=== PATIENT | male | born 1950 | race Caucasian/White ===

== ENCOUNTER 2017-09-01 11:39 | Emergency (ER) | payer OTHER ==
[2017-09-01 11:40] VITALS: BP 192/94; PULSE 78; RESP 16; TEMP 98.6; O2SAT 97
[2017-09-01] MEDS ORDERED: SIMV40TA PO (12:02)
[2017-09-01] MEDS ORDERED: LIDOCAINE HCL 1% 50 ML VIAL INFIL ONE (12:15)
[2017-09-01] MEDS ORDERED: ACETAMINOPHEN/HYDROcodone 325 MG/5 MG TAB PO ONE (12:15)
[2017-09-01] MEDS ORDERED: TETANUS/DIPHTHERIA TOXOID ADULT 0.5 ML VIAL IM ONE (12:15)
[2017-09-01] MEDS ORDERED: BUPIVACAINE HCL PF 0.5% 10 ML VIAL INFIL ONE (12:15)
--- NOTE | 2017-09-01 12:17 | PD ---
HPI Chief Complaint: Laceration/Skin Injury Time Seen by Provider: 12:13 Travel History International Travel<30 days: No Contact w/Intl Traveler<30days: No Traveled to known affect area: No History of Present Illness HPI 66-year-old male presents to emergency department complaining of right index finger pain and laceration after he got crushed under a [employer]ke machine. He is an employee with [employer] and this is a work-related injury. Denies paresthesias , loss of sensation, decreased range of motion, decreased strength to the affected finger. Bleeding controlled. Denies anticoagulant therapy. Applied pressure and bandage to control bleeding. Has not taken any medication to alleviate his symptoms. Pain is constant. Throbbing in sensation. 8/10 pain rating. No relieving factors. No known allergies. Has no medical complaints. No other modifying factors or associated signs and symptoms. PFSH Past Medical History High Cholesterol: Yes Diabetes: Yes Patient Takes Glucophage: No Tetanus Vaccination: < 5 Years Past Surgical History Surgical History: No Previous Surgery Social History Alcohol Use: No Tobacco Use: No Substance Use: No Allergies-Medications (Allergen,Severity, Reaction): Coded Allergies: No Known Allergies (Unverified , 09/01/17) Reported Meds & Prescriptions Reported Meds & Active Scripts Active Bactrim DS (Sulfamethoxazole-Trimethoprim) 800-160 Mg Tab 1 Tab PO BID 7 Days Ibuprofen 800 Mg Tab 800 Mg PO Q6HR PRN Marion (Hydrocodone-Acetaminophen) 5 Mg-325 Mg Tab 1 Tab PO Q4H PRN Reported Simvastatin 40 Mg Tab 40 Mg PO HS Review of Systems Except as stated in HPI: all other systems reviewed are Neg Physical Exam Narrative GENERAL: Well-nourished, well-developed black male patient, in no acute distress SKIN: Warm and dry. Left hand second index finger with approximately 2.5 cm laceration to the medial aspect of the base of the finger in between the MCP and PIP joint; finger with full range of motion at all joints and with minimal edema; bleeding controlled; with good opposition and sensory intact. HEAD: Atraumatic. Normocephalic. EYES: Pupils equal and round. No scleral icterus. No injection or drainage. ENT: Mucosa pink and moist. Airway patent. NECK: Trachea midline. CARDIOVASCULAR: Regular rate. RESPIRATORY: No accessory muscle use. GASTROINTESTINAL: Rounded. MUSCULOSKELETAL: No obvious deformities. No clubbing. No cyanosis. No edema. NEUROLOGICAL: Awake and alert. Oriented 3. No obvious cranial nerve deficits. Motor grossly within normal limits. Normal speech. PSYCHIATRIC: Appropriate mood and affect; insight and judgment normal. Data Data Last Documented VS Vital Signs Date Time Temp Pulse Resp B/P (MAP) Pulse Ox O2 Delivery O2 Flow Rate FiO2 09/01/17 11:40 98.6 78 16 192/94 (126) 97 Room Air Orders Orders Finger ([id number]) (09/01/17 ) Acetamin-Hydrocod 325-5 Mg (Marion 5-325 (09/01/17 12:15) Tetanus/Diphtheria Tox Adult (Tetanus/Di (09/01/17 12:15) Bupivacaine Pf 0.5% Inj (Marcaine Pf 0.5 (09/01/17 12:15) Lidocaine 1% Inj (50 Ml) (Xylocaine 1% I (09/01/17 12:15) Ed Discharge Order (09/01/17 13:55) MDM Medical Decision Making Medical Screen Exam Complete: Yes Emergency Medical Condition: Yes Medical Record Reviewed: Yes Differential Diagnosis Finger fracture, contusion, abrasion, laceration Narrative Course 56-year-old male with right index finger laceration and crush injury. Tetanus is up-to-date. Marion and Right index finger x-ray ordered. Right finger x-ray concludes Finger X-Ray 09/01/17 0000 Signed Impressions: Service Date/Time: Friday, September 01, 2017 12:35 - CONCLUSION: Unremarkable examination of the right second finger except for soft tissue swelling anteriorly. Augustus Metcalf MD See my procedure note laceration repair. Bactrim, Marion, ibuprofen prescribed for home. Instructed patient to follow up with primary care provider. Patient verbalizes understanding and agreement with treatment plan. Patient is medically cleared and stable for discharge. Discussed reasons to return to the emergency department. Patient agrees with treatment plan. The patients vital signs are stable and the patient is stable for outpatient follow-up and treatment. Patient discharged home, stable and in no acute distress. Procedures Procedure Narrative LACERATION LOCATION: Right hand second finger, medial aspect between the MCP and PIP joint LENGTH: 2.5cm NUMBER OF STITCHES/PETRA: 9 simple interrupted sutures REPAIR: The area of the laceration was prepped with Betadine and sterilely draped. Finger digitally blocked using 1% lidocaine and 0.5% bupivacaine. The wound was copiously irrigated and explored without evidence of foreign body, tendon injury or neurovascular injury. The wound was closed using 4-0 Prolene. This was a single layer repair. A sterile dressing was applied. The patient was advised to keep the dressing clean and dry. Patient tolerated the procedure well. Diagnosis Primary Impression: Finger laceration Qualified Codes: S61.210A - Laceration without foreign body of right index finger without damage to nail, initial encounter Referrals: Primary Care Physician Patient Instructions: Acute Wound Care (DC), Care For Your Stitches (ED), Finger Laceration (ED), General Instructions Departure Forms: Tests/Procedures, Work Release Enter return to work date: Sep 07, 2017 Additional Instructions: Keep area clean and dry Limit right hand index finger activity to decrease risk of sutures coming undone done; use sling for support and to decrease activity Ibuprofen as prescribed and as needed for pain and inflammation Ice pack to area as needed to decrease pain Return to the emergency department or follow-up with primary care provider in 7- 10 days for suture removal Follow up with primary care provider within 2-4 days Return to the emergency department immediately with worsening of symptoms, particularly if reddened streaks up or down the affected extremity from the suture site, fever, numbness/tingling in the affected extremity, loss of sensation in the affected extremity, severe swelling of the affected Med/Other Pt SpecificInfo: Prescription(s) given Scripts Sulfamethoxazole-Trimethoprim (Bactrim DS) 800-160 Mg Tab 1 TAB PO BID for Infection for 7 Days, #14 TAB 0 Refills Prov: Yenny Garsia 09/01/17 Ibuprofen (Ibuprofen) 800 Mg Tab 800 MG PO Q6HR Y for PAIN, #20 TAB 0 Refills Prov: Yenny Garsia 09/01/17 Hydrocodone-Acetaminophen (Marion) 5 Mg-325 Mg Tab 1 TAB PO Q4H Y for PAIN, #8 TAB 0 Refills Prov: Yenny Garsia 09/01/17 Disposition: 01 DISCHARGE HOME Condition: Stable Yenny Garsia Sep 01, 2017 12:17
--- NOTE | 2017-09-01 12:51 | RADRPT ---
EXAM DATE/TIME: 09/01/2017 12:35 [facility] COMPARISON: No previous studies available for comparison. INDICATIONS : Patient states that his right hand, 2nd digit got crushed by a coke machine while at work. MEDICAL HISTORY : None. SURGICAL HISTORY : None. ENCOUNTER: Initial ACUITY: 1 day PAIN SCORE: 8/10 LOCATION: Right 2nd digit FINDINGS: Examination of the second digit of the right hand demonstrates no evidence of fracture or dislocation . No radiopaque foreign bodies are seen. The soft tissues are intact. CONCLUSION: Unremarkable examination of the right second finger except for soft tissue swelling anteriorly. Augustus Metcalf MD on September 01, 2017 at 12:49 Board Certified Radiologist. This report was verified electronically.
[2017-09-01] MEDS ORDERED: BACT800T5 PO (13:53)
[2017-09-01] MEDS ORDERED: NORC5TAB PO (13:53)
[2017-09-01] MEDS ORDERED: IBUP1TAB7 PO (13:53)
[2017-09-01 14:36] VITALS: BP 125/68
== END 2017-09-01 14:38 | disposition home or self-care (01) ==
LOC: NEPD 11:39
DX: S61.210A Laceration without foreign body of right index finger without damage to nail, initial encounter (principal); E78.00 Pure hypercholesterolemia, unspecified; W23.0XXA Caught, crushed, jammed, or pinched between moving objects, initial encounter
CPT/HCPCS: 12001; 73140